=== PATIENT | male | born 1985 | race Caucasian/White ===

== ENCOUNTER 2020-11-27 13:38 | Emergency (ER) | payer MEDICAID ==
[~2020-11-27] VITALS: Ht 182.9 cm; Wt 86.6 kg
[2020-11-27 13:50] VITALS: BP 102/64
[2020-11-27] MEDS ORDERED: SULF1TAB48 PO (14:16)
[2020-11-27] MEDS ORDERED: MUPI22OI2 TP (14:16)
[2020-11-27] MEDS ORDERED: CEPH500C2 PO (14:16)
== END 2020-11-27 14:24 | disposition home or self-care (01) ==
LOC: ER 13:59
DX: L08.9 Local infection of the skin and subcutaneous tissue, unspecified (principal); L25.8 Unspecified contact dermatitis due to other agents